=== PATIENT | female | born 1995 | race Caucasian/White ===

== ENCOUNTER 2019-04-03 07:03 | Outpatient (CLI) | payer SELFPAY ==
--- NOTE | 2019-04-03 07:15 | US_ITS ---
WS: [id number] ULTRASOUND ABDOMEN LIMITED CLINICAL INFORMATION: cellulitis of old unused g-tube site, with purulent drainage COMPARISON: None. FINDINGS: In the abdominal wall at the G-tube insertion is a small fluid collection with some internal debris m easuring 1.0 x 1.4 cm. Findings are suspicious for infected fluid collection/abscess. Recommend corre lation for infection and cellulitis. US/US abdomen limited 66355 IMPRESSION: In the abdominal wall. NG tube insertion with a small fluid collection with carolyn e internal debris suspicious for abscess measuring 1.0 x 1.4 cm
== END 2019-04-03 07:04 | disposition home or self-care (01) ==
LOC: RAD 07:08
PROVIDERS: Family Provider Family Medicine; Visit Provider Emergency Medicine
DX: K94.20 Gastrostomy complication, unspecified (principal); L03.311 Cellulitis of abdominal wall
CPT/HCPCS: 76705

== ENCOUNTER 2019-04-17 05:58 | Day surgery (SDC) | payer SELFPAY ==
[2019-04-14 07:36] VITALS: BMI 25.9
[2019-04-17 06:14] LABS: OR HCG Qualitative Urine Negative (Negative)
[2019-04-17 06:15] VITALS: BP 107/74; PULSE 81; RESP 18; TEMP 37.3; O2SAT 97
--- NOTE | 2019-04-17 06:25 | ANES.PREANE2 ---
Pre-Anesthetic Assessment Pre-Anesthetic Assessment: Height/Weight: Height 1.42 m Weight 52.617 kg Temp Pulse Resp BP Pulse Ox 99.1 F 81 18 107/74 97 04/17/19 06:15 04/17/19 06:15 04/17/19 06:15 04/17/19 06:15 04/17/19 06:15 Preop Diagnosis: gc fistula Proposed Procedure: Operation Date: 04/17/19 07:15 Proposed Procedures p EGD w/ Clip PLacement 19300/L03.311(Not Applicable) - Oj Null MD s possible debridement of abdominal wall(Not Applicable) - Oj Null MD Familial anesthetic complications: None Was Beta Cata taken within 24 hours: N/A Last intake: Intake Last Liquid Date 04/17/19 Last Liquid Time 22:00 Last Solid Date 04/16/19 Last Solid Time 22:00 Social: Social History: No alcohol Packs per day: vAPES Exam: Pre-Anes Outpt Exam: alert, oriented x 3, clear to auscultation bilaterally and regular rate & rhythm Airway: Cervical ROM: WNL MP: 1 Dentition: Full Pulmonary: Pulmonary: None reported CV/HEM: CV/HEM: Murmur : : None reported Hepatic: Hepatic: None reported GI: GI: None reported Comments: Fundoplication as an with feeding tube Metabolic: Metabolic: None reported Musc/skel: Musc/skel: None reported Neuropsych: Neuropsych: None reported Anesthetic Plan: ASA status: 1 Risk of > 500 ml blood loss (7ml/kg in children): No PFSH Anesthesia PFSH: Social History Smoking and tobacco status: current every day smoker e-cigarettes Alcohol intake: never History of recent travel: No Data Anesthesia Other Labs: Laboratory Results - last 48 hr 04/17/19 05:49 Urine HCG, Qual Negative Cardiac Studies: No Data to Display
[2019-04-17] MEDS: sodium chloride 0.9% 1,000 ML 30 ML IV (06:28)
--- NOTE | 2019-04-17 07:01 | W.PM.OPSUD ---
Surgery/Procedure H&P Update DATE OF PROCEDURE: April 17, 2019 DATE H&P PERFORMED: 04/14/19 H&P UPDATE INFORMATION: I have reviewed H&P completed within last 30 days, I have examined patient prior to procedure and No changes to prior documentation PREOP DIAGNOSIS: gc fistula PLANNED PROCEDURE: Operation Date: 04/17/19 07:15 Proposed Procedures p EGD w/ Clip PLacement 40008/L03.311(Not Applicable) - Oj Null MD s possible debridement of abdominal wall(Not Applicable) - Oj Null MD
[2019-04-17 07:33] VITALS: BP 87/65; PULSE 84; RESP 16; TEMP 36.6; O2SAT 92
--- NOTE | 2019-04-17 07:37 | PM.OP ---
Operative Report Date of procedure: April 17, 2019 Pre-op Diagnosis: Gastrocutaneous fistula Post-op diagnosis: same Procedure Done: Esophagogastroduodenoscopy with application of 3 Resolution clips for closure of gastrocutaneous fistula Pathology: none sent Surgeon: Oj Null Anesthesia: MAC Estimated blood loss (mL): 10 Condition: stable Disposition: PACU Brief History: This is a 24-year-old female who had a gastrostomy tube as a child which was removed when she was 6. Recently she developed a gastrocutaneous fistula at the gastrostomy site. I discussed with her the option of endoscopic closure versus open closure. We will attempt a less invasive endoscopic procedure which has a 50% chance of success. Procedure: The patient is in the operating room and placed under MAC after IV antibiotic administered. The area around the gastrocutaneous fistula was prepped and draped in a sterile manner. A gastroscope was introduced and advanced up to the second portion of the duodenum and slowly withdrawn. There were no abnormalities in the stomach as well as the duodenum except for the gastrocutaneous fistula. The mucosa around the gastrocutaneous fistula was cauterized using hot biopsy forceps and 3 separate Resolution clips were placed to close the fistula. The gastroscope was withdrawn. 3-0 Prolene suture was placed to approximate the skin edges and sterile dressings were applied. Patient tolerated the procedure well.
[2019-04-17 07:51] VITALS: BP 102/67; PULSE 93; RESP 18; O2SAT 96
[2019-04-17 08:13] VITALS: BP 106/75; PULSE 84; RESP 18; O2SAT 96
--- NOTE | 2019-04-17 12:55 | PM.PACU ---
PACU note Post-Anesthesia Exam: awake and vital signs stable Disposition: discharged
== END 2019-04-17 08:32 | disposition home or self-care (01) ==
PROVIDERS: Family Provider Family Medicine; Visit Provider Surgery
PROC: 0DJ08ZZ Inspection of Upper Intestinal Tract, Via Natural or Artificial Opening Endoscopic (ICD-10-PCS; CPT 43235; principal; 2019-04-17 07:15)
DX: K31.6 Fistula of stomach and duodenum (principal); F17.290 Nicotine dependence, other tobacco product, uncomplicated
CPT/HCPCS: 43999; 12345; 81025; 84703; J0690; J2704; J3010; J7030

== ENCOUNTER 2019-06-21 14:22 | Observation (INO) | payer SELFPAY ==
[2019-06-20 12:47] VITALS: BMI 27.3
[2019-06-21] VITALS (14 sets, daily range): BP systolic 92–128; BP diastolic 65–95; PULSE 77–138; RESP 16–27; TEMP 36.5–36.9; O2SAT 92–99
--- NOTE | 2019-06-21 11:53 | ANES.PREANE2 ---
Pre-Anesthetic Assessment Pre-Anesthetic Assessment: Height/Weight: Height 1.42 m Weight 55.338 kg Temp Pulse Resp BP Pulse Ox 97.7 F 77 18 107/72 98 06/21/19 11:35 06/21/19 11:35 06/21/19 11:35 06/21/19 11:35 06/21/19 11:35 Preop Diagnosis: Gastrocutaneous fistula Proposed Procedure: Operation Date: 06/21/19 12:55 Proposed Procedures p Laparotomy with excision of gastrocutaneouos fistula and EGD 61041 89932 75704 K31.6(Not Applicable) - Oj Null MD s EGD(Not Applicable) - Oj Null MD Was Beta Cata taken within 24 hours: N/A Last intake: Intake Last Liquid Date 06/20/19 Last Liquid Time 18:00 Last Solid Date 06/20/19 Last Solid Time 18:00 Social: Comment: Joshua Exam: Pre-Anes Outpt Exam: alert, oriented x 3, clear to auscultation bilaterally and regular rate & rhythm Airway: Submandibular: WNL Cervical ROM: WNL MP: 2 Dentition: Full History/ROS: No significant history except as noted and No significant complaints Pulmonary: Pulmonary: None reported CV/HEM: CV/HEM: None reported : : None reported Hepatic: Hepatic: None reported GI: GI: None reported Metabolic: Metabolic: None reported Musc/skel: Musc/skel: None reported Neuropsych: Neuropsych: None reported Anesthetic Plan: ASA status: 2 Anesthesia: Anesthesia Evaluation and General Risk of > 500 ml blood loss (7ml/kg in children): No PFSH Anesthesia PFSH: Medical History 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
[2019-06-21] MEDS: neomycin-poly-bacitracin oint 28 gm 1 APPLIC TOPICAL (13:50)
--- NOTE | 2019-06-21 14:15 | SUR.PHASEI ---
1402 PATIENT TO PACU AT THIS TIME. PATIENT TEARFUL. RR EVEN AND UNLABORED. DRESSING TO LEFT UPPER ABDOMEN, CDI.
--- NOTE | 2019-06-21 14:52 | SUR.PHASEI ---
1432 PATIENT TO MED SURG AT THIS TIME. NO DISTRESS. PAIN IMPROVED. DRESSING TO LEFT UPPER ABDOMEN, CDI. PATIENT ASSISTED TO BATHROOM WHEN ARRIVING ON MED SURG. GAIT STEADY.
--- NOTE | 2019-06-21 15:02 | PM.OP ---
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 The abdomen was prepped and draped in a sterile manner. An EGD was performed and the gastrocutaneous fistula was identified. A lacrimal probe was introduced through the gastrocutaneous fistula and seen on the EGD. Using a 15 blade an elliptical 5 cm transverse incision was made around the gastrocutaneous fistula. Using electrocautery the subcutaneous tissue was divided down to the external oblique aponeurosis and the anterior rectus sheath where the fistula entered the abdominal cavity. The tissue around the gastrocutaneous fistula was dissected free from the surrounding abdominal wall muscles until the anterior wall of the stomach could be mobilized freely. The fistula was excised and the gastric wall was grasped with Allis clamps and a TA 60 stapler was used to divide the anterior abdominal wall. A leak test using the gastroscope was negative. The peritoneum was approximated using 2-0 Vicryl running suture. The external oblique aponeurosis and the anterior rectus sheath was approximated using running 0 Vicryl suture. The wound was irrigated and subcutaneous tissues approximated syncopal 3-0 Vicryl suture and skin was closed with mathew and sterile dressings were applied. 1% lidocaine with 0.5% Marcaine was infiltrated around the incision. The patient was extubated and transferred to recovery room in stable condition.
[2019-06-21] MEDS: ondansetron 2 mg/ML SDV 2 mL 4 MG IVP ×2 (15:42→19:25)
[2019-06-21] MEDS: HYDROcodone-acetaminophen 5-325 mg Tablet 1 TAB PO ×2 (15:42→23:37)
[2019-06-21] MEDS: lactated ringers 1,000 ML 100 ML IV (15:43)
[2019-06-21] MEDS: docusate sodium 100 mg Capsule PO (17:36)
[2019-06-21] MEDS: morphine 4 mg/mL SDV 1 mL 2 MG IVP (19:26)
[2019-06-22] VITALS (8 sets, daily range): BP systolic 88–112; BP diastolic 55–80; PULSE 67–103; RESP 16–20; TEMP 36.7–37.4; O2SAT 92–98
[2019-06-22] MEDS: lactated ringers 1,000 ML 100 ML IV ×3 (01:20→23:53)
[2019-06-22 02:48] LABS: Anion Gap 15.1 (5-19); Basophils % 0.2 %; Blood Urea Nitrogen 9 mg/dL (6-20); Calcium 8.2 mg/dL (8.5-10.5); Carbon Dioxide 22 mmol/L (22-29); Chloride 105 mmol/L (98-107); Glomerular Filtration Rate 103.7 mL/min (90-130); Glucose 127 mg/dL (65-115); Hemoglobin 14.1 g/dL (11.5-15.3); Lymphocytes # 1.7 10^3/uL (0.8-4.8); Lymphocytes % 10.8 %; Mean Corpuscular HGB Conc 33.6 g/dL (30.0-36.0); Mean Corpuscular Hemoglobin 31.5 pg (28.0-34.0); Mean Platelet Volume 9.6 fL (7.4-10.4); Monocytes # 0.7 10^3/uL (0.2-0.9); Neutrophils # 13.6 10^3/uL (1.8-7.7); Neutrophils % 84.7 %; Nucleated Red Blood Cells % 0 %; Osmolality Calculated 284 mOsm/kg (285-295); Platelet Count 384 10^3/cmm (130-400); Potassium 4.1 mmol/L (3.5-5.1); Red Blood Count 4.47 10^6/uL (4.1-5.3); Red Cell Distribution Width 11.3 % (12.1-15.1); Sodium 138 mmol/L (136-145); White Blood Count 16.1 10^3/uL (4.0-10.0)
[2019-06-22] MEDS: enoxaparin 30 mg/0.3 mL Syringe SUBCUT (05:17)
[2019-06-22] MEDS: sertraline 50 mg Tablet PO (08:17)
[2019-06-22] MEDS: pantoprazole 40 mg SDV IVP (08:17)
[2019-06-22] MEDS: docusate sodium 100 mg Capsule PO ×2 (08:17→17:43)
[2019-06-22] MEDS: HYDROcodone-acetaminophen 5-325 mg Tablet 1 TAB PO ×3 (10:56→23:53)
--- NOTE | 2019-06-22 11:32 | PC.CHAP ---
Pastoral Care Encounter/Spiritual Assessment Type of Contact [] Declined computerized mill mill recorder visit [] Patient/Family/Request visit [] Outpatient visit [] Follow-up visit [] Physician referral [] Code/Alert [x] Routine visit [] Staff referral [] Actively dying [] Patient sleeping [] Family support [] [] Out of room [] Palliative care [] [] Receiving care in room [] Pre-surgical visit [] Trauma [] Long length of stay [] ICU visit [] Other: Relational/Emotional Strength [x] Patient feels connected with others/family/visitors/staff [] Distress [] Loneliness/isolation [] Abandonment Spirituality of Patient [x] Person of Keerthi [] Attends Presybeterian of their Keerthi [x] Believes in Prayer [x] Reads Bible or Samaritan materials [] There are Spiritual issues to be addressed 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 Interventions [x] Prayer [x] Active listening [x] Non-anxious presence [x] Spiritual/emotional support [] Crisis/trauma care [x] Spiritual counseling [] Bereavement support [] Provided bereavement packet [] Provided Bible/devotional materials [] Provided toy/stuffed animal, coloring book to patient or family member [] Provided Communion [] Anointing/[place] [] Salvation [x] Completed spiritual assessment [] Other: Impact on Illness or Injury [] Angry [] Fearful [] Anxious [] Often cries [] Exhaustion [] Unable to work [] Unable to attend synagogue [] Unable to walk/stand [] Unable to read [] Unable to drive [] Unable to eat/drink [] Unable to sleep [] Unable to be with family [] Patient intubated [x] Other: n/a Summary Time spent with patient 5 minutes
[2019-06-22] MEDS: ondansetron 2 mg/ML SDV 2 mL 4 MG IVP (11:46)
--- NOTE | 2019-06-22 14:37 | P.PN_ITS ---
Subjective Subjective: Interval history: Patient has been doing well denies any significant pain, no nausea or vomiting. 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
[2019-06-23 00:12] VITALS: BP 107/75; PULSE 103; RESP 18; TEMP 36.8; O2SAT 90
[2019-06-23 03:33] VITALS: BP 104/74; PULSE 105; RESP 18; TEMP 36.9; O2SAT 90
[2019-06-23] MEDS: enoxaparin 40 mg/0.4 mL Syringe SUBCUT (05:42)
[2019-06-23 06:18] LABS: Basophils % 0.4 %; Eosinophils # 0.1 10^3/uL (0.0-0.8); Eosinophils % 0.6 %; Hematocrit 40.8 % (37.0-47.0); Hemoglobin 13.5 g/dL (11.5-15.3); Lymphocytes # 2.3 10^3/uL (0.8-4.8); Lymphocytes % 21.8 %; Mean Corpuscular HGB Conc 33.1 g/dL (30.0-36.0); Mean Corpuscular Hemoglobin 31.3 pg (28.0-34.0); Mean Corpuscular Volume 94.4 fL (81-99); Mean Platelet Volume 9.4 fL (7.4-10.4); Monocytes # 0.8 10^3/uL (0.2-0.9); Monocytes % 7.9 %; Neutrophils # 7.2 10^3/uL (1.8-7.7); Neutrophils % 68.9 %; Nucleated Red Blood Cells % 0 %; Platelet Count 311 10^3/cmm (130-400); Red Blood Count 4.32 10^6/uL (4.1-5.3); Red Cell Distribution Width 11.7 % (12.1-15.1); White Blood Count 10.4 10^3/uL (4.0-10.0)
[2019-06-23 06:35] LABS: Anion Gap 13.6 (5-19); Blood Urea Nitrogen 4 mg/dL (6-20); Calcium 9.2 mg/dL (8.5-10.5); Carbon Dioxide 25 mmol/L (22-29); Chloride 108 mmol/L (98-107); Creatinine Clr Calc Pharmacy 127.3927; Glomerular Filtration Rate 123.9 mL/min (90-130); Glucose 117 mg/dL (65-115); Osmolality Calculated 293 mOsm/kg (285-295); Potassium 3.6 mmol/L (3.5-5.1); Sodium 143 mmol/L (136-145)
[2019-06-23 08:00] VITALS: BP 106/75; PULSE 96; RESP 19; TEMP 37; O2SAT 94
[2019-06-23] MEDS: pantoprazole 40 mg SDV IVP (09:14)
[2019-06-23] MEDS: sertraline 50 mg Tablet PO (09:14)
[2019-06-23] MEDS: docusate sodium 100 mg Capsule PO (09:14)
[2019-06-23] MEDS: HYDROcodone-acetaminophen 5-325 mg Tablet 1 TAB PO ×2 (09:18→15:10)
[2019-06-23 12:00] VITALS: BP 110/77; PULSE 102; RESP 18; TEMP 36.9; O2SAT 94
--- NOTE | 2019-06-23 14:22 | P.PN_ITS ---
Subjective Subjective: Interval history: Patient has been doing well, denies any nausea or vomiting, tolerating liquid diet, afebrile over the last 24 hours Vitals/I&O/Wt Last Vital Signs Temp 98.4 F 06/23/19 12:00 Pulse 102 H 06/23/19 12:00 Resp 18 06/23/19 12:00 BP 110/77 06/23/19 12:00 Pulse Ox 94 06/23/19 12:00 06/22/19 06/23/19 06/23/19 22:59 06:59 14:59 Intake Total 1000 / 2560 480 / 2560 640 / 640 Output Total 200 / 204 4 / 204 Balance 800 / 2356 476 / 2356 640 / 640 Physical Exam Narrative: EXAM NARRATIVE: Abdomen: Soft, nondistended, minimally tender around the incision, healing well Data : 06/23/19 05:50 06/23/19 05:50 A&P Assessment and plan (1) 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
--- NOTE | 2019-06-23 14:22 | PM.DCS ---
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 Initial attempt was made with endoscopy closure which was unsuccessful and therefore she underwent excision of gastrocutaneous fistula. Patient was admitted to the hospital for observation and IV antibiotics postprocedure. At time of discharge. She was tolerating liquid diet her vital signs are stable and her incision was clean dry and intact Physical Exam Narrative: EXAM NARRATIVE: Abdomen: Soft, nondistended, minimally tender, incision clean dry intact Discharge Data Data Completed and Pending: Pending at discharge Category Date Time Status Basic Metabolic P yfn AM LABS Lab 06/24/19 04:00 Ordered Complete Blood Co unt w/Auto AM LABS Lab 06/24/19 04:00 Ordered Pathology: Surgic al [PTH] Routine Pth 06/22/19 13:02 Received Labs from last 24 hours 06/23/19 06/23/19 05:50 05:50 WBC 10.4 H RBC 4.32 Hgb 13.5 Hct 40.8 MCV 94.4 MCH 31.3 MCHC 33.1 RDW 11.7 L Plt Count 311 MPV 9.4 Neut % (Auto) 68.9 Lymph % (Auto) 21.8 Cross % (Auto) 7.9 Eos % (Auto) 0.6 Baso % (Auto) 0.4 Neut # (Auto) 7.2 Lymph # (Auto) 2.3 Cross # (Auto) 0.8 Eos # (Auto) 0.1 Baso # (Auto) 0.0 Nucleated RBC % (a uto) 0 Nucleated RBCs # 0.0 Sodium 143 Potassium 3.6 Chloride 108 H Carbon Dioxide 25 Anion Gap 13.6 BUN 4 L Creatinine 0.6 GFR Calculation 123.9 Glucose 117 H Calculated Osmolal ity 293 Calcium 9.2 Vitals: Last Vital Signs Temp 98.4 F 06/23/19 12:00 Pulse 102 H 06/23/19 12:00 Resp 18 06/23/19 12:00 BP 110/77 06/23/19 12:00 Pulse Ox 94 06/23/19 12:00 Discharge Plan Discharge Patient Disposition: Home, Self-Care Condition: Stable Prescriptions: New Sylva 5-325 mg tablet 1 tab PO Q6H 7 Days Qty: 20 RF: 0 Zofran 4 mg tablet 4 mg PO Q6H PRN (Reason: nausea and vomiting) Qty: 20 RF: 0 Protonix 40 mg tablet,delayed release (DR/EC) 40 mg PO DAILY 42 Days RF: 0 Colace 100 mg capsule 100 mg PO BID Qty: 30 RF: 0 Levaquin 500 mg tablet 500 mg PO DAILY 7 Days RF: 0 Continued sertraline [Zoloft] 50 mg tablet 50 mg PO DAILY RF: 0 Discharge Orders: Discharge Order (Routine); Ordered 06/23/19 Ordered By: Oj Null Referrals: Oj Null MD [Physician] - 2 weeks (You have a hospital follow up appointment with Dr. 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
[2019-06-23] MEDS: ondansetron 2 mg/ML SDV 2 mL 4 MG IVP (15:10)
[2019-06-23 16:19] VITALS: BP 110/77; PULSE 102; RESP 18; TEMP 36.9; O2SAT 94
--- NOTE | 2019-06-23 16:40 | PC.NURSE ---
Reviewed patient's discharge with patient including medications and follow up appointment. IV removed at this intact. Patient taken by wheelchair to family's car. Patient is A&Ox3. respirations even and non-labored on room air.
--- NOTE | 2019-06-30 17:27 | W.PM.OPSUD ---
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
== END 2019-06-23 16:40 | disposition home or self-care (01) ==
LOC: MEDSURG 14:22
PROVIDERS: Admitting Provider Surgery; Visit Provider Surgery
PROC: (CPT 49000; principal; 2019-06-21 12:55)
PROC: 0DJ08ZZ Inspection of Upper Intestinal Tract, Via Natural or Artificial Opening Endoscopic (ICD-10-PCS; CPT 43235; 2019-06-21 12:55)
DX: K31.6 Fistula of stomach and duodenum (principal); F17.290 Nicotine dependence, other tobacco product, uncomplicated
CPT/HCPCS: 43235; 49000; 12345; 36415; 80048; 81025; 85025; 88305; 96361; 96365; 96366; 96372; 96375; C9113; G0378; J0690; J1100; J1650; J2001; J2270; J2405; J2704; J3010; J3490

== ENCOUNTER → 2022-07-10 15:45 | Outpatient (BNVA) | payer OTHER, SELFPAY | PROVIDERS: Visit Provider Emergency Medicine | DX: N39.0 Urinary tract infection, site not specified (principal) | CPT/HCPCS: 81000 ==

== ENCOUNTER → 2022-08-27 15:32 | Outpatient (BNVA) | payer OTHER, SELFPAY | PROVIDERS: PCP Nurse Practitioner Family; Visit Provider Family Medicine | DX: N39.0 Urinary tract infection, site not specified (principal) | CPT/HCPCS: 81000 ==

== ENCOUNTER 2023-07-19 08:14 | Emergency (ER) | payer OTHER, SELFPAY ==
[2023-07-19 08:25] VITALS: BP 108/82; PULSE 67; RESP 17; TEMP 36.6; O2SAT 99; BMI 26.9
--- NOTE | 2023-07-19 09:08 | ED_ITS ---
HPI - Dental/Oral 2 General: Chief complaint: Dental/Oral Stated complaint: Swollen right eye Time Seen by Provider: 07/19/23 08:18 Source: patient Mode of arrival: ambulatory History of Present Illness: 28-year-old female comes in complaining of pain and swelling in the maxilla on the right side. Show after premolar first molar region. No drainage from the wounds there is some right-sided maxillary swelling. Low-grade subjective fever no vomiting no diarrhea no rash MD Complaint: tooth pain Teeth map: 1. 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 Quit status (tobacco/nicotine): has tried quititng Number of times tried to quit tobacco: 1 Second hand smoke exposure: Yes Alcohol intake: current Alcohol intake frequency: holidays/special occasions only Alcohol type: hard liquor Substance/Drug Use: former Date of last use: Marijuana. 05/2021. Current gender identity: Female Physical Exam 2 Const: COMMON NORMALS: no acute distress GENERAL APPEARANCE: cooperative and comfortable ORIENTATION/CONSCIOUSNESS: Yes awake, Yes oriented to person, Yes oriented to place and Yes oriented to time HENMT: COMMON NORMALS: normocephalic, atraumatic and hearing grossly normal bilaterally HEAD & SCALP: normocephalic and atraumatic Resp: COMMON NORMALS: normal respiratory effort, No retractions, No use of accessory muscles and clear to auscultation bilaterally AUSCULTATION: clear to auscultation bilaterally Cardio: COMMON NORMALS: regular rate, regular rhythm and No murmurs present (Cardio) RATE: regular rate RHYTHM: regular rhythm Extremity: COMMON NORMALS: normal to inspection, capillary refill normal, no clubbing, cyanosis or edema, no calf tenderness and no pedal edema Neuro: SENSORIUM/ORIENTATION: Yes oriented to person, Yes oriented to place and Yes oriented to time Skin: COMMON NORMALS: no rashes or lesions noted GENERAL SKIN EXAM: no rashes or lesions noted Course 2 Vital Signs: Vital signs: Vital Signs Temperature 97.9 F 07/19/23 08:25 Pulse Rate 67 07/19/23 08:25 Respiratory Rate 17 07/19/23 08:25 Blood Pressure 108/82 07/19/23 08:25 Pulse Oximetry 99 07/19/23 08:25 MDM - Dental/Oral Medical Decision Making Dental caries/abscess some mild localized facial pain and swelling. There is some swelling along the gumline. Started on Augmentin 875 twice daily pain medications follow-up with dentist as soon as she is able Medical Records I reviewed the patient's medical records. Lab Data I reviewed the patient's lab results. All radiology interpretation(s) finalized by discharge Discharge Plan Discharge Patient Disposition: Home Clinical Impression: Dental abscess Condition: Stable Prescriptions: New amoxicillin-pot clavulanate 875-125 mg tablet 1 tab PO BID Qty: 20 0RF diclofenac sodium 75 mg tablet,delayed release (DR/EC) 75 mg PO Q12H PRN (Reason: pain) Qty: 20 0RF Discontinued ibuprofen 600 mg tablet 600 mg PO Q8H PRN (Reason: pain) Qty: 60 0RF No Action amoxicillin-pot clavulanate 875-125 mg tablet 1 tab PO BID 7 Days Qty: 14 0RF trazodone 50 mg tablet 100 mg PO .HS PRN (Reason: insomnia) Qty: 60 2RF sertraline [Zoloft] 100 mg tablet 100 mg PO DAILY Qty: 30 2RF Zofran 4 mg tablet 4 mg PO Q6H PRN (Reason: nausea and vomiting) Qty: 20 0RF Discharge Orders: Discharge ED (Routine); Ordered 07/19/23 Ordered By: Tawanda Rojas Referrals: Will Farrell FNP [Primary Care Provider] - Discharge Diet: Soft Mechanical Discharge Activity: Resume usual activity Patient Instructions: Dental Abscess (ED), Opioid Safety, Pain Management Activity Restrictions/Additional Instructions: Thank you for choosing [facility] for your healthcare needs today. It is very important that you follow up as instructed or that you return to the Emergency Department should you have concerns or if your condition changes or worsens in any way. You are seen today for dental infection. We started on oral antibiotic recommend you follow-up with dentist soon as you are able. 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
== END 2023-07-19 09:30 | disposition home or self-care (01) ==
PROVIDERS: Emergency Provider Family Medicine; PCP Nurse Practitioner Family
DX: K04.7 Periapical abscess without sinus (principal); F17.290 Nicotine dependence, other tobacco product, uncomplicated
CPT/HCPCS: 99283

== ENCOUNTER → 2023-09-14 08:21 | Outpatient (BNVA) | payer OTHER, SELFPAY | PROVIDERS: PCP Nurse Practitioner Family; Visit Provider Nurse Practitioner Women's Health | DX: N92.6 Irregular menstruation, unspecified (principal) | CPT/HCPCS: 81025 ==

== ENCOUNTER → 2023-09-15 15:26 | Outpatient (BNVA) | payer OTHER, SELFPAY | PROVIDERS: PCP Nurse Practitioner Family; Visit Provider Nurse Practitioner Women's Health | DX: R10.2 Pelvic and perineal pain (principal) | CPT/HCPCS: 76830 ==

== ENCOUNTER → 2023-09-27 15:41 | Outpatient (BNVA) | payer OTHER, SELFPAY | PROVIDERS: PCP Nurse Practitioner Family; Visit Provider Nurse Practitioner Women's Health | DX: R10.2 Pelvic and perineal pain (principal) | CPT/HCPCS: 81000; 87086 ==

== ENCOUNTER → 2023-10-20 11:46 | Outpatient (BNVA) | payer OTHER, SELFPAY | PROVIDERS: PCP Nurse Practitioner Family; Visit Provider Nurse Practitioner Family | DX: F41.1 Generalized anxiety disorder (principal); I10 Essential (primary) hypertension; R53.83 Other fatigue | CPT/HCPCS: 80053; 80061; 84443; 85025 ==

== ENCOUNTER → 2023-11-03 15:45 | Outpatient (BNVA) | payer OTHER, SELFPAY | PROVIDERS: PCP Nurse Practitioner Family; Visit Provider Nurse Practitioner Women's Health | DX: Z01.419 Encounter for gynecological examination (general) (routine) without abnormal findings (principal) | CPT/HCPCS: 87624 ==

== ENCOUNTER → 2024-01-19 10:47 | Outpatient (BNVA) | payer OTHER, SELFPAY | PROVIDERS: PCP Nurse Practitioner Family; Visit Provider Nurse Practitioner Family | DX: E78.5 Hyperlipidemia, unspecified (principal) | CPT/HCPCS: 80053; 80061 ==

== ENCOUNTER → 2024-03-31 08:10 | Outpatient (BNVA) | payer OTHER, SELFPAY | PROVIDERS: PCP Nurse Practitioner Family; Visit Provider Nurse Practitioner Family | DX: J32.9 Chronic sinusitis, unspecified (principal) | CPT/HCPCS: 87880 ==

== ENCOUNTER → 2024-07-26 15:44 | Outpatient (BNVA) | payer OTHER, SELFPAY | PROVIDERS: PCP Nurse Practitioner Family; Visit Provider Nurse Practitioner Women's Health | DX: N92.6 Irregular menstruation, unspecified (principal); N91.2 Amenorrhea, unspecified; Z01.419 Encounter for gynecological examination (general) (routine) without abnormal findings | CPT/HCPCS: 80053; 82306; 82670; 83001; 83002; 83036; 83520; 83525; 84402; 84403; 84443; 85025 ==

== ENCOUNTER → 2024-08-02 17:00 | Outpatient (BNVA) | payer OTHER, SELFPAY | PROVIDERS: PCP Nurse Practitioner Family; Visit Provider Nurse Practitioner Women's Health | DX: N91.2 Amenorrhea, unspecified (principal) | CPT/HCPCS: 84146 ==

== ENCOUNTER → 2024-08-24 13:30 | Outpatient (BNVA) | payer OTHER, SELFPAY | PROVIDERS: PCP Nurse Practitioner Family; Visit Provider Nurse Practitioner Women's Health | DX: N92.5 Other specified irregular menstruation (principal); Q51.3 Bicornate uterus | CPT/HCPCS: 76830 ==

== ENCOUNTER → 2025-02-05 13:08 | Outpatient (BNVA) | payer OTHER, SELFPAY | PROVIDERS: PCP Nurse Practitioner Family; Visit Provider Family Medicine | DX: R09.81 Nasal congestion (principal) | CPT/HCPCS: 87400; 87426 ==